=== PATIENT | female | born 1980 | race Two or more races ===

== ENCOUNTER → 2017-02-04 00:08 | Emergency (ER) | payer BC, MEDICAID ==
[~2017-02-04 00:08] MED LIST: Acetaminophen TAB* 325 MG PO ONE; Insulin REGULAR(*) 1 UNITS UNIT SUBCUT ONE; Sulfamethox/Trimethoprim DS 800/160* TAB PO ONE
[2017-02-04 00:46] LABS: Hematocrit 42 % (35-47); Hemoglobin 14.2 g/dl (12.0-16.0); Mean Corpuscular HGB Conc 34 g/dl (31-36); Mean Corpuscular Hemoglobin 28 pg (27-31); Mean Corpuscular Volume 84 fL (80-97); Mean Platelet Volume 8 um3 (7.4-10.4); Red Blood Count 4.99 10^6/ul (4.0-5.4); Red Cell Distribution Width 13 % (10.5-15); White Blood Count 10.2 10^3/ul (3.5-10.8)
[2017-02-04 00:54] LABS: Urine Bacteria Absent (Absent); Urine Bilirubin Negative (Negative); Urine Glucose 3+(>=500 mg/dL) (Negative); Urine Nitrite Negative (Negative)
[2017-02-04 01:01] LABS: ALT 15 U/L (7-52); AST 12 U/L (13-39); Alkaline Phosphatase 74 U/L (34-104); Anion Gap 6 mmol/L (2-11); BUN/Creatinine Ratio 17.7 (8-20); Blood Urea Nitrogen 11 mg/dL (6-24); CO2 Carbon Dioxide 28 mmol/L (22-32); Calcium 9.5 mg/dL (8.6-10.3); Chloride 96 mmol/L (101-111); EGFR African American 141.7 (>60); EGFR Non-African American 110.2 (>60); Globulin 2.6 g/dL (2-4); Glucose 380 mg/dL (70-100); Lipase 23 U/L (11.0-82.0); Potassium 3.7 mmol/L (3.5-5.0); Sodium 130 mmol/L (133-145); Total Protein 6.6 g/dL (6.4-8.9)
--- NOTE | 2017-02-04 01:33 | ED ---
GI/ HPI - HPI Summary HPI Summary: 36F presents with burning urination, nausea and bilateral flank pain for a week. She states her sugars have been high. She denies any vomiting, diarrhea , constipation. She has pelvic pain. She denies any vaginal discharge. She denies any history of STDs. She has generalized headache that feels like a band around her head. She denies any fever. She admits to frequency and urgency. She denies any injury to the area. She denies any history of kidney stones or blood in her urine. She is a diabetic. - History of Current Complaint Chief Complaint: EDFlankPain Time Seen by Provider: 02/04/17 00:26 Stated Complaint: LOWER BACK PAIN Pain Intensity: 8 - Allergy/Home Medications Allergies/Adverse Reactions: Allergies Allergy/AdvReac Type Severity Reaction Status Date / Time No Known Allergies Allergy Verified 06/17/14 13:33 PMH/Surg Hx/FS Hx/Imm Hx Endocrine/Hematology History: Reports: Hx Diabetes Cardiovascular History: Denies: Hx Congestive Heart Failure, Hx Hypertension History: Denies: Hx Dialysis, Hx Renal Disease - Surgical History Surgery Procedure, Year, and Place: 2 c-sections/ carpal tunnel/colon polyps removed Infectious Disease History: No Infectious Disease History: Denies: Traveled Outside the US in Last 30 Days - Family History Known Family History: Positive: Diabetes - Social History Alcohol Use: None Substance Use Type: Reports: None Smoking Status (MU): Never Smoked Tobacco Review of Systems Negative: Fever Negative: Chest Pain Negative: Shortness Of Breath Positive: Nausea Positive: dysuria, frequency, flank pain All Other Systems Reviewed And Are Negative: Yes Physical Exam Triage Information Reviewed: Yes Vital Signs On Initial Exam: Initial Vitals Temp Pulse Resp BP Pulse Ox 96.9 F 96 16 107/69 99 02/04/17 00:09 02/04/17 00:09 02/04/17 00:09 02/04/17 00:02/04/17 00:09 Vital Signs Reviewed: Yes Appearance: Positive: Well-Appearing Skin: Positive: Warm, Dry Head/Face: Positive: Normal Head/Face Inspection Eyes: Positive: Normal, EOMI, LILLIE, Conjunctiva Clear ENT: Positive: Normal ENT inspection, Pharynx normal, TMs normal Respiratory/Lung Sounds: Positive: Clear to Auscultation, Breath Sounds Present Cardiovascular: Positive: Normal, RRR Abdomen Description: Positive: Soft, Other: - mild tenderness in suprapubic region. Negative: CVA Tenderness (R), CVA Tenderness (L) Bowel Sounds: Positive: Present - [place] Coma Scale Coma Scale Total: 15 Diagnostics - Vital Signs Vital Signs Temp Pulse Resp BP Pulse Ox 02/04/17 00:09 96.9 F 96 16 107/69 99 - Laboratory Lab Results: Lab Results 02/04/17 02/04/17 02/04/17 Range/Units 00:34 00:34 00:34 WBC 10.2 (3.5-10.8) 10^3/ul RBC 4.99 (4.0-5.4) 10^6/ul Hgb 14.2 (12.0-16.0) g/dl Hct 42 (35-47) % MCV 84 (80-97) fL MCH 28 (27-31) pg MCHC 34 (31-36) g/dl RDW 13 (10.5-15) % Plt Count 305 (150-450) 10^3/ul MPV 8 (7.4-10.4) um3 Neut % (Auto) 57.7 (38-83) % Lymph % (Auto) 33.8 (25-47) % [place] % (Auto) 5.6 (1-9) % Eos % (Auto) 1.8 (0-6) % Baso % (Auto) 1.1 (0-2) % Absolute Neuts (auto) 5.9 (1.5-7.7) 10^3/ul Absolute Lymphs (auto) 3.4 (1.0-4.8) 10^3/ul Absolute Monos (auto) 0.6 (0-0.8) 10^3/ul Absolute Eos (auto) 0.2 (0-0.6) 10^3/ul Absolute Basos (auto) 0.1 (0-0.2) 10^3/ul Absolute Nucleated RBC 0.01 10^3/ul Nucleated RBC % 0.1 Sodium 130 L (133-145) mmol/L Potassium 3.7 (3.5-5.0) mmol/L Chloride 96 L (101-111) mmol/L Carbon Dioxide 28 (22-32) mmol/L Anion Gap 6 (2-11) mmol/L BUN 11 (6-24) mg/dL Creatinine 0.62 (0.51-0.95) mg/dL Est GFR ( Amer) 141.7 (>60) Est GFR (Non-Af Amer) 110.2 (>60) BUN/Creatinine Ratio 17.7 (8-20) Glucose 380 H (70-100) mg/dL Calcium 9.5 (8.6-10.3) mg/dL Total Bilirubin 0.40 (0.2-1.0) mg/dL AST 12 L (13-39) U/L ALT 15 (7-52) U/L Alkaline Phosphatase 74 (34-104) U/L Total Protein 6.6 (6.4-8.9) g/dL Albumin 4.0 (3.2-5.2) g/dL Globulin 2.6 (2-4) g/dL Albumin/Globulin Ratio 1.5 (1-3) Lipase 23 (11.0-82.0) U/L Beta HCG, Quant < 0.60 mIU/mL Urine Color Yellow Urine Appearance Cloudy Urine pH 5.0 (5-9) Ur Specific [place] 1.035 H (1.010-1.030) Urine Protein Negative (Negative) Urine Ketones Negative (Negative) Urine Blood Negative (Negative) Urine Nitrate Negative (Negative) Urine Bilirubin Negative (Negative) Urine Urobilinogen Negative (Negative) Ur Leukocyte Esterase Trace H (Negative) Urine WBC (Auto) Trace(0-5/hpf) (Absent) Urine RBC (Auto) Trace(0-2/hpf) (Absent) Ur Squamous Epith Cells Present H (Absent) Urine Bacteria Absent (Absent) Urine Glucose 3+(>=500 mg/dl) H (Negative) Result Diagrams: 02/04/17 00:34 02/04/17 00:34 Lab Statement: Any lab studies that have been ordered have been reviewed, and results considered in the medical decision making process. GIGU Course/Dx - Course Course Of Treatment: 36F presents with burning urination, nausea and bilateral flank pain for a week. She states her sugars have been high. She denies any vomiting, diarrhea, constipation. She has pelvic pain. She denies any vaginal discharge. She denies any history of STDs. She has generalized headache that feels like a band around her head. She denies any fever. She admits to frequency and urgency. She denies any injury to the area. She denies any history of kidney stones or blood in her urine. on exam minimial pain in suprapubic area. neg CVA tenderness. labs normal wbc. glucose 380 so gave insulin. patient did not take lantus yet. no ketones in urine. urine leuk and wbc so will treat for UTI and with sx with treat for pyelo. do not suspect kidney stone as no blood in urine. - Diagnoses Differential Diagnoses - Female: Pyelonephritis, Urinary Tract Infection, Ureteral Calculi Provider Diagnoses: Pyelonephritis Discharge - Discharge Plan Condition: Stable Disposition: HOME Prescriptions: Ondansetron ODT TAB* [Zofran 4 MG Odt TAB*] 4 mg PO Q6H PRN #15 tab.odt PRN Reason: Nausea Sulfamethox/Trimethoprim DS* [Bactrim DS 800/160 TAB*] 1 tab PO BID #27 tab Patient Education Materials: Kidney Infection (ED) Referrals: Fe Bowser MD [Primary Care Provider] - Additional Instructions: Take antibiotic twice a day for 14 days, starting tomorrow Drink plenty of water Take zofran every 6 hours for nausea Take Tylenol or ibuprofen every 6 hours as needed for pain and fever Follow up with primary within a week Return to ED if develop severe vomiting, or any new or worsening symptoms
[2017-02-04 01:56] VITALS: BP 115/69
== END | disposition home or self-care (01) ==
LOC: ED 00:08
DX: N12 Tubulo-interstitial nephritis, not specified as acute or chronic (principal); M54.5 Low back pain; R11.0 Nausea; R30.0 Dysuria
CPT/HCPCS: 36415; 80053; 81003; 81015; 83690; 84702; 85025; 87086; 99282; A9270-GY

== ENCOUNTER 2017-09-01 22:38 | Emergency (ER) | payer BC, MEDICAID ==
[2017-09-01] MEDS ORDERED: NS 0.9% 1000 ML* 1,000 ML IV ONE (23:12)
[2017-09-01 23:39] LABS: ABS Basophils 0.1 10^3/ul (0-0.2); ABS Eosinophils 0.2 10^3/ul (0-0.6); ABS Lymphocytes 3.7 10^3/ul (1.0-4.8); ABS Monocytes 0.5 10^3/ul (0-0.8); ABS Neutrophils 5.5 10^3/ul (1.5-7.7); ABS Nucleated RBC 0 10^3/ul; Eosinophil % 1.6 % (0-6); Hematocrit 40 % (35-47); Hemoglobin 13.5 g/dl (12.0-16.0); Lymphocyte % 36.9 % (25-47); Mean Corpuscular HGB Conc 34 g/dl (31-36); Mean Corpuscular Hemoglobin 28 pg (27-31); Mean Corpuscular Volume 82 fL (80-97); Mean Platelet Volume 8.3 um3 (7.4-10.4); Nucleated Red Blood Cells % 0.1; Platelet Count 284 10^3/ul (150-450); Red Blood Count 4.85 10^6/ul (4.0-5.4); Red Cell Distribution Width 14 % (10.5-15); White Blood Count 9.9 10^3/ul (3.5-10.8)
[2017-09-01 23:50] LABS: INR 0.9 (0.77-1.02)
[2017-09-02] LABS: EGFR Non-African American 126.5 (>60)
[2017-09-02] MEDS ORDERED: Insulin REGULAR(*) 1 UNITS UNIT IV PUSH ONE (00:36)
--- NOTE | 2017-09-02 02:41 | ED ---
Nakita Fam Julia, scribed for Goldie Toth MD on 09/01/17 at 2319 . GI/ HPI - HPI Summary HPI Summary: This patient is a 36 year old F presenting to [facility] accompanied by_ with a chief complaint of constant vaginal bleeding since 08/17/17 worsening today with lower abdominal pain. Patient reports dizziness and vomiting. The patient rates the pain 6/10 in severity. Patient states her period is usually very regular every four weeks lasting 3-4 days of heavy bleeding with 2 days of light bleeding. She has had an IUD (copper) for the past 7 years. She states she has not seen an OB in years. - History of Current Complaint Chief Complaint: EDVaginalBleeding Time Seen by Provider: 09/01/17 22:49 Stated Complaint: VAGINAL BLEEDING, FATIGUE Onset/Duration: Started Weeks Ago, Still Present Timing: Constant Pain Intensity: 6 Location of Pain: Suprapubic Associated Signs and Symptoms: Positive: Dizziness, Vomiting, Abdominal Pain - Allergy/Home Medications Allergies/Adverse Reactions: Allergies Allergy/AdvReac Type Severity Reaction Status Date / Time No Known Allergies Allergy Verified 06/17/14 13:33 PMH/Surg Hx/FS Hx/Imm Hx Endocrine/Hematology History: Reports: Hx Diabetes Cardiovascular History: Reports: Hx Hypercholesterolemia, Hx Hypertension Denies: Hx Congestive Heart Failure History: Denies: Hx Dialysis, Hx Renal Disease Psychiatric History: Reports: Hx Depression - Surgical History Surgery Procedure, Year, and Place: 2 c-sections/ carpal tunnel/colon polyps removed Infectious Disease History: No Infectious Disease History: Denies: Traveled Outside the [place] in Last 30 Days - Family History Known Family History: Positive: Diabetes - Social History Alcohol Use: None Substance Use Type: Reports: None Smoking Status (MU): Never Smoked Tobacco Review of Systems Positive: Abdominal Pain, Vomiting Positive: other - vaginal bleeding Neurological: Other - dizziness All Other Systems Reviewed And Are Negative: Yes Physical Exam - Summary Physical Exam Summary: VITAL SIGNS: Reviewed. GENERAL: Patient is a well-developed and nourished female who is lying comfortable in the stretcher. Patient is not in any acute respiratory distress. HEAD AND FACE: No signs of trauma. No ecchymosis, hematomas or skull depressions. No sinus tenderness. EYES: PERRLA, EOMI x 2, No injected conjunctiva, no nystagmus. EARS: Hearing grossly intact. Ear canals and tympanic membranes are within normal limits. MOUTH: Oropharynx within normal limits. NECK: Supple, trachea is midline, no adenopathy, no JVD, no carotid bruit, no c- spine tenderness, neck with full ROM. CHEST: Symmetric, no tenderness at palpation LUNGS: Clear to auscultation bilaterally. No wheezing or crackles. CVS: Regular rate and rhythm, S1 and S2 present, no murmurs or gallops appreciated. ABDOMEN: Soft, non-tender. No signs of distention. No rebound no guarding, and no masses palpated. Bowel sounds are normal. EXTREMITIES: FROM in all major joints, no edema, no cyanosis or clubbing. NEURO: Alert and oriented x 3. No acute neurological deficits. Speech is normal and follows commands. SKIN: Dry and warm Triage Information Reviewed: Yes Vital Signs On Initial Exam: Initial Vitals Temp Pulse Resp BP Pulse Ox 97 F 83 20 118/78 98 09/01/17 22:40 09/01/17 22:40 09/01/17 22:40 09/01/17 22:40 09/01/17 22:40 Vital Signs Reviewed: Yes Diagnostics - Vital Signs Vital Signs Temp Pulse Resp BP Pulse Ox 09/01/17 22:40 97 F 83 20 118/78 98 - Laboratory Result Diagrams: 09/01/17 23:30 09/01/17 23:30 Lab Statement: Any lab studies that have been ordered have been reviewed, and results considered in the medical decision making process. - Additional Comments Diagnostic Additional Comments: A Pelvic US reveals: Uterus is normal and an IUD is noted within the endometrial cavity. Normal left ovary with positive Doppler blood flow. Normal right ovary with positive Doppler blood flow. No free fluid. No acute abnormalities are identified. ED Physician has reviewed this report. Re-Evaluation - Re-Evaluation 1 Re-Evaluation Time: 02:20 Comment: Pt informed of results. Pt will be discharged. GIGU Course/Dx - Course Course Of Treatment: Pt presents with onstant vaginal bleeding since 08/17/17 worsening today with lower abdominal pain. A Pelvis US is unremarkable. Lab results reveal blood glucose of 190, but are otherwise WNL. Pt is given insulin and IV fluids. Pt is instructed to follow up with OB and is discharged. - Diagnoses Provider Diagnoses: Vaginal bleeding, Hyperglycemia Discharge - Sign-Out/Discharge Documenting (check all that apply): Discharge - Discharge Plan Condition: Stable Disposition: HOME Patient Education Materials: Dysfunctional Uterine Bleeding (ED), Diabetic Hyperglycemia (ED) Referrals: Marilee Robertson MD [Medical Doctor] - As Soon As Possible (Follow up with your OB physician, or this OB physician.) The documentation as recorded by the Nakita ludwig Julia accurately reflects the service I personally performed and the decisions made by me, Goldie Toth MD.
[2017-09-02 03:25] VITALS: BP 114/71
--- NOTE | 2017-09-02 07:42 | RAD ---
HISTORY: Vaginal bleeding COMPARISONS: March 11, 2013 TECHNIQUE: Multiple transverse and longitudinal ultrasound images were obtained of the pelvis using grayscale, color Doppler, and spectral Doppler imaging using the transabdominal transducer. FINDINGS: UTERUS: The uterus measures 9.7 x 4.7 x 5.8 cm. The uterus is normal in shape, size, contour, and echotexture. ENDOMETRIUM: An IUD is noted centrally within the endometrial cavity towards the fundus. The endometrium is not well-visualized given the presence of the IUD in technique. CUL-DE-SAC: There is no free fluid within the cul-de-sac. RIGHT OVARY: The right ovary measures 4.1 x 1.6 x 3 cm. Normal arterial and venous waveforms are identifiable within the ovary on spectral Doppler imaging. LEFT OVARY: The left ovary measures 3.5 x 2.1 x 3.1 cm. Normal arterial and venous waveforms are identifiable within the ovary on spectral Doppler imaging. There is a 1.6 cm simple cyst of the left ovary. BLADDER: The visualized bladder is unremarkable. OTHER: None IMPRESSION: 1. IUD. 2. 1.6 CM SIMPLE CYST OF THE LEFT OVARY. 3. NO SONOGRAPHIC FEATURES OF TORSION. PLEASE NOTE THAT PARTIAL OR INTERMITTENT TORSION MAY BE SONOGRAPHICALLY NORMAL.
== END 2017-09-02 03:23 | disposition home or self-care (01) ==
LOC: ED 22:38
DX: N93.9 Abnormal uterine and vaginal bleeding, unspecified (principal); E11.65 Type 2 diabetes mellitus with hyperglycemia; Z79.4 Long term (current) use of insulin; N83.292 Other ovarian cyst, left side; Z32.02 Encounter for pregnancy test, result negative; Z97.5 Presence of (intrauterine) contraceptive device; R42 Dizziness and giddiness; R11.10 Vomiting, unspecified; R10.30 Lower abdominal pain, unspecified; E78.00 Pure hypercholesterolemia, unspecified; I10 Essential (primary) hypertension; F32.9 Major depressive disorder, single episode, unspecified
CPT/HCPCS: 36415; 76856; 80053; 84702; 85025; 85610; 85730; 86850; 86900; 86901; 96374; 99284

== ENCOUNTER 2019-04-16 19:36 | Emergency (ER) | payer BC, MEDICAID ==
--- OUTSIDE RECORDS SUMMARY | 2019-04-16 19:56 | XMS REPORT | Continuity of Care Document ---
:1980 External Reference #:[id number] Author Name Nilson Phan MD (transmitted by agent of provider Charmaine Raymond) Address [address] [place] [id number] Care Team Providers Name Role Phone Maxim Pollock MD - Internal Care Team Information [employer]inner [phone] Medicine Fe Bowser MD - Internal Care Team Information [employer] Medicine Problems Active Problems Provider Date Type II diabetes mellitus uncontrolled Fe Bowser M.D. Onset: 04/15/2012 Obesity Fe Bowser M.D. Onset: 04/15/2012 Depressive disorder Fe Bowser M.D. Onset: 01/20/2013 Adenomatous polyp of colon Fe Bowser M.D. Onset: 06/23/2014 Note: tubular ( no high grade dysplasia ) Alopecia Fe Bowser M.D. Onset: 06/27/2014 Hyperlipidemia Fe Bowser M.D. Onset: 06/27/2014 Internal hemorrhoids Fe Bowser M.D. Onset: 06/27/2014 Helicobacter pylori gastrointestinal tract Onset: infection Note: clotest + treated Erosive esophagitis Onset: Note: H pylori + , treated by Pradip Saini Social History Type Date Description Comments Sex Unknown ETOH Use Denies alcohol use Tobacco Use Start: Unknown Patient has never smoked Recreational Drug Use Denies Drug Use Smoking Status Reviewed: 04/01/19 Patient has never smoked Exercise Type/Frequency Exercises regularly walking and gym Allergies, Adverse Reactions, Alerts Description No Known Drug Allergies Medications Active Medications SIG Qnty Indications Ordering Date Provider Ozempic (1 MG/Dose) 1mg injection 3ml E11.65 Nilson Phan MD 04/01/2019 once weekly, hold 2mg/1.5ML Solution on file for Pen-Inject second month Humalog Mix 75/25 20 units with 30ml E11.65 Nilson Phan MD 08/14/2018 Kwikpen last meal of day , 20 units with (75-25)100Unit/ML first meal of the n day BD Insulin Syringe 8mm - use daily 30units E11.65 Fe Bowser, 2014 Ultrafine/1ML/31G X or as needed M.D. 5/16" 31G X 5/16" 1 ML Misc BD Pen use as directed 200units Nilson Phan MD 05/11/2015 Needle/Mini/Ultrafin with Ozempic and e/31G X 3/16" Humalog 31G X 5 mm [facility] Accu-Chek Fastclix 3 - 4 times daily 300units E11.65 Mohamud Lawrence 04/25/2015 Lancets or as needed [place] [facility] DX:E11.65 Lisinopril 1 by mouth every 90tabs Fe Bowser, 08/24/2014 2.5mg day M.D. Tablets Accu-Check Orin 3-4 times a day 300units E11.65 Mohamud Lawrence 07/23/2013 Chem Strips and as needed dx [place] [facility] e11.65 Relion Pen [place] use daily with 3Box Fe Bowser, 06/11/2013 [id number] victoza pt is M.D. 31G X 8 mm leaving out of [facility] country Accu-Check Glucose check 2-3 times a 1units E11.65 Fe Bowser, 2011 Monitor day M.DLuna Device Immunizations CPT Code Status Date Vaccine Lot # [id number] Given 03/28/2015 Influenza Virus Vaccine, Quadrivalent, Split, [id number] Preservative Free [id number] Given 10/06/2014 Pneumococcal Conjugate Vaccine 13 Valent For [id number] Intramuscular Use [id number] Given 04/06/2014 Flu Vaccine Split Virus Preservative Free For [id number] Indiv 3Yr Older 13864 Given 08/18/2013 Hepatitis B Vaccine Adult Dosage [id number] Given 03/02/2013 Flu Vaccine Split Virus Preservative Free For [id number] Indiv 3Yr Older 10065 Given 08/25/2012 Pneumonia Vaccine [id number] Given 08/25/2012 Tdap - Tetanus/Diptheria/Acellular Pertussis [id number] Given 04/14/2012 Fluvirin Im 3Yrs And Older [id number] Refused 03/20/2017 Influenza Virus Vaccine, Quadrivalent, Split, Preservative Free [id number] Refused 07/31/2016 Influ Virus Vaccine, Quadrivalent, Split Virus, Im Fluzone not PF Vital Signs Date Vital Result Comment 04/01/2019 9:50am Height 63 inches 5'3" Weight 201.00 lb Heart Rate 90 /min BP Systolic Sitting 117 mmHg BP Diastolic Sitting 83 mmHg BMI (Body Mass Index) 35.6 kg/m2 09/25/2018 11:05am Height 63 inches 5'3" Weight 209.00 lb w/ shoes Heart Rate 94 /min BP Systolic Sitting 132 mmHg BP Diastolic Sitting 88 mmHg BMI (Body Mass Index) 37.0 kg/m2 Results Description No Information Available Procedures Date Code Description Status 11/25/2017 213044695 Diabetic Retinal Eye Exam Completed 09/02/2015 [id number] Diabetic Retinal Eye Exam Completed 09/08/2014 055259348 Diabetic Retinal Eye Exam Completed 06/21/2014 84236948 Colonoscopy Completed 06/03/2013 67753757 Colonoscopy Completed 06/03/2012 856094089 Diabetic Retinal Eye Exam Completed Medical Devices Description No Information Available Encounters Description No Information Available Assessments Date Code Description Provider 04/01/2019 E11.65 Type 2 diabetes mellitus with hyperglycemia Nilson Phan MD 04/01/2019 Z79.4 custodial (current) use of insulin Nilson Phan MD Plan of Treatment Future Appointment(s):07/08/2019 9:20 am - Nilson Phan MD at [facility]04/01/2019 - Nilson Phan MDE11.65 Type 2 diabetes mellitus with hyperglycemiaNew Medication:Ozempic (1 MG/Dose) 2 mg/1.5ML - 1mg injection once weekly, hold on file for second monthFollow up:3 monthsInstructions:1. Increase Ozempic to 1mg every week. 2. Reduce insulin to 20 units with largest meal of the day and if your morning blood glucose is more than 160. 3. Reduce or eliminate carbohydrate in the foods you eat. 4. Blood tests today. 5. 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
[2019-04-16] MEDS ORDERED: Ketorolac INJ* 30 MG/ML 1 ML VIAL IV PUSH ONE (21:05)
[2019-04-16] MEDS ORDERED: Ondansetron INJ* 2 MG/ML VIAL IV ONE (21:05)
[2019-04-16 21:27] LABS: ABS Basophils 0.1 10^3/ul (0-0.2); ABS Eosinophils 0.1 10^3/ul (0-0.6); ABS Lymphocytes 2.2 10^3/ul (1.0-4.8); ABS Monocytes 0.4 10^3/ul (0-0.8); ABS Neutrophils 6.5 10^3/ul (1.5-7.7); Eosinophil % 1.1 %; Hematocrit 39 % (35-47); Hemoglobin 13.5 g/dL (12.0-16.0); Lymphocyte % 23.9 %; Mean Corpuscular HGB Conc 34 g/dL (31-36); Mean Corpuscular Hemoglobin 29 pg (27-31); Mean Corpuscular Volume 84 fL (80-97); Mean Platelet Volume 8.3 fL (7.4-10.4); Nucleated Red Blood Cells % 0.1; Platelet Count 282 10^3/uL (150-450); Red Blood Count 4.67 10^6 /uL (3.70-4.87); Red Cell Distribution Width 13 % (10-15); White Blood Count 9.3 10^3/uL (3.5-10.8)
--- NOTE | 2019-04-16 21:28 | ED ---
GI/ HPI - HPI Summary HPI Summary: 38-year-old female presents with abdominal pain today. She admits to nausea vomiting. Denies any diarrhea. She admits to dysuria. No hematuria. Never had this pain before. She has history . No other abdominal surgeries. Is diabetic and takes insulin. She denies any shortness of breath and chest pain. Denies any history of diverticulitis or colitis. no fevers. has had a decrease in appetite. no one else is sick. did not eat anything different. - History of Current Complaint Chief Complaint: EDAbdPain Time Seen by Provider: 04/16/19 20:58 Stated Complaint: ABDOMINAL PAIN,THROWING UP PER PT Pain Intensity: 10 - Allergy/Home Medications Allergies/Adverse Reactions: Allergies Allergy/AdvReac Type Severity Reaction Status Date / Time No Known Allergies Allergy Verified 03/26/18 06:02 PMH/Surg Hx/FS Hx/Imm Hx Endocrine/Hematology History: Reports: Hx Diabetes Cardiovascular History: Reports: Hx Hypercholesterolemia, Hx Hypertension Denies: Hx Congestive Heart Failure History: Denies: Hx Dialysis, Hx Kidney Infection, Hx Kidney Stones, Hx Renal Disease Psychiatric History: Reports: Hx Depression - Surgical History Surgery Procedure, Year, and Place: 2 c-sections/ carpal tunnel/colon polyps removed Infectious Disease History: No Infectious Disease History: Denies: Traveled Outside the [place] in Last 30 Days - Family History Known Family History: Positive: Diabetes - Social History Alcohol Use: None Hx Substance Use: No Substance Use Type: Reports: None Hx Tobacco Use: No Smoking Status (MU): Never Smoked Tobacco Review of Systems Negative: Fever Negative: Chest Pain Negative: Shortness Of Breath Positive: Abdominal Pain, Vomiting, Nausea. Negative: Diarrhea All Other Systems Reviewed And Are Negative: Yes Physical Exam Triage Information Reviewed: Yes Vital Signs On Initial Exam: Initial Vitals Temp Pulse Resp BP Pulse Ox 98.0 F 94 18 124/99 97 04/16/19 19:44 04/16/19 19:44 04/16/19 19:44 04/16/19 19:44 04/16/19 19:44 Vital Signs Reviewed: Yes Appearance: Positive: Well-Appearing Skin: Positive: Warm, Dry Head/Face: Positive: Normal Head/Face Inspection Eyes: Positive: Normal, Conjunctiva Clear ENT: Positive: Pharynx normal Respiratory/Lung Sounds: Positive: Clear to Auscultation, Breath Sounds Present Cardiovascular: Positive: Normal, RRR Abdomen Description: Positive: Soft, Other: - tenderness in lower abd Bowel Sounds: Positive: Present Musculoskeletal: Positive: Normal Neurological: Positive: Normal Psychiatric: Positive: Normal Procedures - Sedation Patient Received Moderate/Deep Sedation with Procedure: No Diagnostics - Vital Signs Vital Signs Temp Pulse Resp BP Pulse Ox 04/16/19 19:44 98.0 F 94 18 124/99 97 - Laboratory Lab Results: Lab Results 04/16/19 Range/Units 21:06 POC Glucose (mg/dL) 214 H (70-100) mg/dL Result Diagrams: 04/16/19 21:15 04/16/19 21:15 Lab Statement: Any lab studies that have been ordered have been reviewed, and results considered in the medical decision making process. - CT abd CT Interpretation Completed By: Radiologist Summary of CT Findings: IMPRESSION: 1. Small volume of mildly hyperdense free fluid within the pelvis. Hyperdensity may be on the basis of hemorrhagic or proteinaceous content. Question ruptured hemorrhagic cyst. 2. No acute inflammatory process. - Ultrasound No standard instances Ultrasound Interpretation Completed By: Radiologist Summary of Ultrasound Findings: IMPRESSION: 1. No evidence of torsion. 2. 3.6 cm left ovarian cyst. 3. Small volume of free fluid. GIGU Course/Dx - Course Course Of Treatment: 38-year-old female presents with abdominal pain today. She admits to nausea vomiting. Denies any diarrhea. She admits to dysuria. No hematuria. Never had this pain before. She has history . No other abdominal surgeries. Is diabetic and takes insulin. She denies any shortness of breath and chest pain. Denies any history of diverticulitis or colitis. On exam has tenderness lower abdomen. White blood count normal. CRP normal. Gave fluids Toradol and Zofran and feeling better. Ultrasound shows left ovarian cysts. CT shows no acute process. told to follow up with spanish moss picker. patient understand and agrees with plan. - Diagnoses Differential Diagnoses - Female: Ovarian Cyst, Ovarian Torsion, Urinary Tract Infection Provider Diagnoses: Ovarian cyst, Abdominal pain Discharge ED - Sign-Out/Discharge Documenting (check all that apply): Patient Departure - Discharge Plan Condition: Good Disposition: HOME Patient Education Materials: Ovarian Cyst (ED) Referrals: Elio,Zsofia, STEWARD DISHWASHER [Primary Care Provider] - Additional Instructions: Take ibuprofen every 6 hours for pain Apply heat Follow up with obgyn Return to ED if develop any new or worsening symptoms - Billing Disposition and Condition Condition: GOOD Disposition: Home
[2019-04-16 21:42] LABS: ALT 12 U/L (7-52); AST 12 U/L (13-39); Albumin 4.1 g/dL (3.2-5.2); Albumin/Globulin Ratio 1.5 (1-3); Alkaline Phosphatase 78 U/L (34-104); Anion Gap 6 mmol/L (2-11); BUN/Creatinine Ratio 16.1 (8-20); Blood Urea Nitrogen 9 mg/dL (6-24); C Reactive Protein 6.31 mg/L (<8.01); CO2 Carbon Dioxide 28 mmol/L (22-32); Calcium 9.2 mg/dL (8.6-10.3); Chloride 101 mmol/L (101-111); EGFR African American 148.2 (>60); EGFR Non-African American 122.5 (>60); Globulin 2.8 g/dL (2-4); Glucose 215 mg/dL (70-100); Potassium 3.7 mmol/L (3.5-5.0); Sodium 135 mmol/L (135-145); Total Protein 6.9 g/dL (6.4-8.9)
[2019-04-16] MEDS: NS 0.9% 1000 ML** 2,000 ML IV ONE (21:44)
[2019-04-16 21:48] LABS: HCG Pregnancy < 0.60 mIU/mL
[2019-04-16 22:03] LABS: Urine Appearance Clear; Urine Bilirubin Negative (Negative); Urine Blood Negative (Negative); Urine Color Yellow; Urine Glucose 3+(>=500 mg/dL) (Negative); Urine Ketones 1+ (Negative); Urine Nitrite Negative (Negative); Urine Protein Negative (Negative); Urine Specific Gravity 1.023 (1.010-1.030); Urine Urobilinogen Negative (Negative)
[2019-04-16] MEDS ORDERED: Iodixanol* (CONTRAST) 320 MG/ML 100 ML SDV IV ONE (22:59)
[2019-04-17 00:41] VITALS: BP 117/71
== END 2019-04-17 00:35 | disposition home or self-care (01) ==
LOC: ED 19:36
DX: N83.202 Unspecified ovarian cyst, left side (principal); R11.2 Nausea with vomiting, unspecified; R30.0 Dysuria; I10 Essential (primary) hypertension; E11.9 Type 2 diabetes mellitus without complications; Z79.4 Long term (current) use of insulin
CPT/HCPCS: 36415; 74177; 76830; 80053; 81003; 82150; 82803; 83605; 83690; 84702; 85025; 86140; 96361; 96374; 96375; 99282; J1885; J2405; Q9967

== ENCOUNTER 2019-06-29 01:04 | Emergency (ER) | payer BC, MEDICAID ==
--- OUTSIDE RECORDS SUMMARY | 2019-06-29 01:14 | XMS REPORT | Continuity of Care Document ---
:1980 External Reference #:[id number] Author Name VAN Saha (transmitted by agent of provider Jayne Carrero) Address [address] [place] [id number] Care Team Providers Name Role Phone Maxim Pollock MD - Internal Care Team Information Cover Stitch Machine Operator [phone] Medicine Fe Bowser MD - Internal Care Team Information Cover Stitch Machine Operator [phone] Medicine Problems Active Problems Provider Date Type [...] Use Denies Drug Use Smoking Status Reviewed: 06/17/19 Patient has never smoked Exercise Type/Frequency Exercises regularly walking and gym Allergies, Adverse Reactions, Alerts Description No Known Drug Allergies Medications Active Medications SIG Qnty Indications Ordering Date Provider BD Pen Needle Mini Use as Directed With 200units Nilson Phan MD 2019 31GX3/16"__5mm Ozempic And Humalog Ozempic (1 Inject 1 MG 3units E11. Nilson Phan MD 04/01/2019 MG/Dose) Subcutaneously (Under The Skin) One Time 2mg/1.5ML Solution Weekly Pen-Inject Humalog Mix 75/25 20 units with last 30ml E11.Ena Phan MD 2018 Kwikpen meal of day , 20 units with first meal (75-25)100Unit/ML of the day Supn BD Insulin Syringe 8mm - use daily or as 30units E11. Fe Bowser, Ultrafine/1ML/31G needed M.D. X 5/16" 31G X 5/16" 1 ML Misc BD Pen use as directed with 100units E11.65 Nilson Phan MD 05/11/2015 Needle/Mini/Ultraf ozempic, once weekly ine/31G X 3/16" and humalog twice daily 31[facility] X [address] [facility] Fast[facility] 3 - 4 times daily or 300units E11.65 Mohamud Lawrence 2014 Lancets as needed DX:E11.65 [place] Rojas [facility] [place] Lisinopril 1 by mouth every day 90tabs Fe Bowser, 08/24/2014 2.5mg M.D. Tablets Accu-Check Orin 3-4 times a day and 300units E11.65 Mohamud Lawrence 07/23/2013 Chem Strips as needed dx e11.65 Shaw[place] Rojas [facility] [place] Relion Pen Bang[place] use daily with 3Box Fe Bowser, 06/11/2013 [id number] victoza pt is leaving M.D. 31G X 8 out of country mm Misc Accu-Check Glucose check 2-3 times a day 1units E11.65 Fe Bowser, Monitor M.D. Device Immunizations CPT Code Status Date Vaccine Lot # [id number] Given 03/28/2015 Influenza Virus Vaccine, Quadrivalent, Split, [id number] Preservative Free [id number] Given 10/06/2014 Pneumococcal Conjugate Vaccine 13 Valent For [id number] Intramuscular Use 46301 Given 04/06/2014 Flu Vaccine Split Virus Preservative Free For [id number] Indiv 3Yr Older 03838 Given 08/18/2013 Hepatitis B Vaccine Adult Dosage [id number] 71289 Given 03/02/2013 Flu Vaccine Split Virus Preservative Free For [id number] Indiv 3Yr Older 02830 Given 08/25/2012 Pneumonia Vaccine [id number] 99226 Given 08/25/2012 Tdap - Tetanus/Diptheria/Acellular Pertussis [id number] Q2037 Given 04/14/2012 Fluvirin Im 3Yrs And Older [id number] [id number] Refused 03/20/2017 Influenza Virus Vaccine, Quadrivalent, Split, Preservative Free [id number] Refused 07/31/2016 Influ Virus Vaccine, Quadrivalent, Split Virus, Im Fluzone not PF Vital Signs Date Vital Result Comment 06/17/2019 9:26am Height 63 inches 5'3" Weight 191.00 lb Heart Rate 95 /min BP Systolic 111 mmHg BP Diastolic 79 mmHg Body Temperature 97.8 F O2 % BldC Oximetry 98 % BMI (Body Mass Index) 33.8 kg/m2 04/01/2019 9:50am Height 63 inches 5'3" Weight 201.00 lb Heart Rate 90 /min BP Systolic Sitting 117 mmHg BP Diastolic Sitting 83 mmHg BMI (Body Mass Index) 35.6 kg/m2 Results Test Acquired Date Facility Test Result H/L Range Note Venous Blood 04/16/2019 [facility] Venous Blood 7.38 Normal 7.32-7.[address] [place] [address] [phone] Venous Pco2 46 mmHg Normal 41-51 Venous Po2 41.0 mmHg Normal 35-45 Venous O2 Saturation 72.6 % Normal 70-80 Venous Blood Base Excess 1.5 mmol/L Normal 0.0-4.0 1 Venous Bicarbonate Hco3 25.4 mmol/L Normal 24-28 Laboratory test 04/16/2019 [facility] Amylase 37 U/L Normal 29 -[address] [place] [address] [phone] CBC Auto Diff 04/16/2019 [facility] White Blood 9.3 Normal 3.5 -10.[address] Count 10^3/[place] [address] [phone] Red Blood Count 4.67 10^6/uL Normal 3.70-4.87 Hemoglobin 13.5 g/dL Normal 12.0-16.0 Hematocrit 39 % Normal 35-47 Mean Corpuscular Volume 84 fL Normal 80-97 Mean Corpuscular Hemoglobin 29 pg Normal 27-31 Mean Corpuscular HGB Conc 34 g/dL Normal 31-36 Red Cell Distribution Width 13 % Normal 10-15 Platelet Count 282 10^3/uL Normal 150-450 Mean Platelet Volume 8.3 fL Normal 7.4-10.4 Abs Neutrophils 6.5 10^3/uL Normal 1.5-7.7 Abs Lymphocytes 2.2 10^3/uL Normal 1.0-4.8 Abs Monocytes 0.4 10^3/uL Normal 0-0.8 Abs Eosinophils 0.1 10^3/uL Normal 0-0.6 Abs Basophils 0.1 10^3/uL Normal 0-0.2 Abs Nucleated RBC 0.0 10^3/uL Granulocyte % 69.4 % Lymphocyte % 23.9 % Monocyte % 4.6 % Eosinophil % 1.1 % Basophil % 1.0 % Nucleated Red Blood Cells % 0.1 Laboratory test 04/16/2019 [facility] Lactic Acid 1.4 mmol/L Normal 0.5-2.0 2 finding [address] [place] [address] [phone] Comp Metabolic 04/16/2019 [facility] Sodium 135 mmol/L Normal 135-145 Panel [address] [place] [address] [phone] Potassium 3.7 mmol/L Normal 3.5-5.0 Chloride 101 mmol/L Normal 101-111 Co2 Carbon Dioxide 28 mmol/L Normal 22-32 Anion Gap 6 mmol/L Normal 2-11 Glucose 215 mg/dL High 70-100 Blood Urea Nitrogen 9 mg/dL Normal 6-24 Creatinine 0.56 mg/dL Normal 0.51-0.95 BUN/Creatinine Ratio 16.1 Normal 8-20 Calcium 9.2 mg/dL Normal 8.6-10.3 Total Protein 6.9 g/dL Normal 6.4-8.9 Albumin 4.1 g/dL Normal 3.2-5.2 Globulin 2.8 g/dL Normal 2-4 Albumin/Globulin Ratio 1.5 Normal 1-3 Total Bilirubin 0.40 mg/dL Normal 0.2-1.0 Alkaline Phosphatase 78 U/L Normal 34-104 Alt 12 U/L Normal 7-52 Ast 12 U/L Low 13-39 Egfr Non- 122.5 >60 Egfr 148.2 >60 3 Laboratory test 04/16/2019 [facility] Lipase 10 U/L Low 11.0- 82.[address] [place] [address] [phone] C Reactive Protein 6.31 mg/L Normal <8.01 HCG < 0.60 mIU/mL 4 Urinalysis Profile 04/16/2019 [facility] Urine Color Yellow [address] [place] [address] [phone] Urine Appearance Clear Urine Specific [place] 1.023 Normal 1.010-1.030 Urine pH 6.0 Normal 5-9 Urine Urobilinogen Negative Negative Urine Ketones 1+ Abnormal Negative Urine Protein Negative Negative Urine Leukocytes Negative Negative Urine Blood Negative Negative Urine Nitrite Negative Negative Urine Bilirubin Negative Negative Urine Glucose 3+(>=500 mg/dL) Abnormal Negative Laboratory test 04/16/2019 [facility] Point of Care 214 mg/dL High 70-[address] [place] [address] [phone] Laboratory test 04/01/2019 [facility] Hemoglobin A1c 9.0 % High 4.0-5.[address] (Glyco HGB) [place] [address] [phone] Comp Metabolic 04/01/2019 [facility] Sodium 136 Normal 135- [address] mmol/[place] [address] [phone] Potassium 4.3 mmol/L Normal 3.5-5.0 Chloride 101 mmol/L Normal 101-111 Co2 Carbon Dioxide 28 mmol/L Normal 22-32 Anion Gap 7 mmol/L Normal 2-11 Glucose 233 mg/dL High 70-100 Blood Urea Nitrogen 10 mg/dL Normal 6-24 Creatinine 0.58 mg/dL Normal 0.51-0.95 BUN/Creatinine Ratio 17.2 Normal 8-20 Calcium 9.5 mg/dL Normal 8.6-10.3 Total Protein 6.8 g/dL Normal 6.4-8.9 Albumin 4.1 g/dL Normal 3.2-5.2 Globulin 2.7 g/dL Normal 2-4 Albumin/Globulin Ratio 1.5 Normal 1-3 Total Bilirubin 0.50 mg/dL Normal 0.2-1.0 Alkaline Phosphatase 88 U/L Normal 34-104 Alt 13 U/L Normal 7-52 Ast 13 U/L Normal 13-39 Egfr Non- 117.6 >60 Egfr 142.3 >60 7 Laboratory 04/01/2019 [facility] TSH (Thyroid 1.16 Normal 0.34 -5.60 test finding [address] Stim Horm) mcIU/[place] [address] [phone] 1 Reference ranges based on room air. [address] [facility] Severe Sepsis and Septic Shock Management Bundle Measure requires all lactic acids initially measuring >2.0 mmol/L be repeated. 3 Because ethnic data is not always readily available, this report includes an eGFR for both -Americans and non- Americans. The National Kidney Disease Education Program (NKDEP) does not endorse the use of the MDRD equation for patients that are not between the ages of 18 and 70, are , have extremes of body size, muscle mass, or nutritional status, or are non- or non-. According to the National Kidney Foundation, irrespective of diagnosis, the stage of the disease is based on the level of kidney function: Stage Description GFR(mL/min/1.73 m(2)) 1 Kidney damage with normal or decreased GFR 90 2 Kidney damage with mild decrease in GFR 60-89 3 Moderate decrease in GFR 30-59 4 Severe decrease in GFR 15-29 5 Kidney failure <15 (or dialysis) 4 <5.0 Negative 5.0 - 25.0 Indeterminate (Repeat testing recommended after 72 hours) >25.0 Positive Perimenopausal women can display HCG levels of up to 20 mIU/mL 5 Scientific Diver: [id number] Therapeutic target for the treatment of diabetes mellitus patients is <7% HBA1C, and in selective patients <6.0%. Please refer to [place] [employer] diabetic care guidelines for further information. 7 Because ethnic data is not always readily available, this report includes an eGFR for both -Americans and non- Americans. The National Kidney Disease Education Program (NKDEP) does not endorse the use of the MDRD equation for patients that are not between the ages of 18 and 70, are , have extremes of body size, muscle mass, or nutritional status, or are non- or non-. According to the National Kidney Foundation, irrespective of diagnosis, the stage of the disease is based on the level of kidney function: Stage Description GFR(mL/min/1.73 m(2)) 1 Kidney damage with normal or decreased GFR 90 2 Kidney damage with mild decrease in GFR 60-89 3 Moderate decrease in GFR 30-59 4 Severe decrease in GFR 15-29 5 Kidney failure <15 (or dialysis) Procedures Date Code Description Status 11/25/2017 680504734 Diabetic Retinal Eye Exam Completed 09/02/2015 [id number] Diabetic Retinal Eye Exam Completed 09/08/2014 [id number] Diabetic Retinal Eye Exam Completed 06/21/2014 [id number] Colonoscopy Completed 06/03/2013 [id number] Colonoscopy Completed 06/03/2012 [id number] Diabetic Retinal Eye Exam Completed Medical Devices Description No Information Available Encounters Type Date Location Provider Dx Diagnosis Office Visit 04/01/2019 [facility] Nilson Phan MD E11.65 Type 2 diabetes 9:40a [facility] mellitus with hyperglycemia Z79.4 [facility] (current) use of insulin Assessments Date Code Description Provider 06/17/2019 M25.539 Pain in unspecified wrist VAN Saha 06/17/2019 M79.641 Pain in right hand VAN Saha 06/17/2019 M25.511 Pain in right shoulder VAN Saha 04/01/2019 E11.65 Type 2 diabetes mellitus with hyperglycemia Nilson Phan MD 04/01/2019 Z79.4 long term acute care registered nurse (current) use of insulin Nilson Phan MD Plan of Treatment Future Appointment(s):07/08/2019 10:00 am - VAN Saha at [facility] Internal Medicine - [facility]06/17/2019 - VIJAYA SahaPM25.539 Pain in unspecified wristComments:Please use the wrists brace as much as possible but at least during the nightAvoid any twisting motion and work against resistance.Follow up: 2 weeks for wrist pain and breast painM79.641 Pain in right handM25.511 Pain in right shoulderNew Therapy:Physical Therapy Functional Status Description No Information Available Mental Status Description No Information Available Referrals Description No Information Available
--- OUTSIDE RECORDS SUMMARY | 2019-06-29 01:14 | XMS REPORT | Continuity of Care Document ---
:1980 External Reference #:[id number] Author Name Gina Tijerina MD (transmitted by agent of provider Zandra Mckeon) Address [address] [facility] , [place] [address] Care Team Providers Name Role Phone Maxim Pollock MD - Internal Care Team Information Software Product Specialist [phone] Medicine Fe Bowser MD - Internal Care Team Information Software Product Specialist Medicine Problems Active Problems Provider Date Type [...] Use Denies Drug Use Smoking Status Reviewed: 06/26/19 Patient has never smoked Exercise Type/Frequency Exercises regularly walking and gym Allergies, Adverse Reactions, Alerts Description No Known Drug Allergies Medications Active Medications SIG Qnty Indications Ordering Date Provider Amoxicillin take 1 tab by mouth 20caps J02.9 Gina 06/26/2019 500mg twice daily for 10 MD Breezy Capsules days BD Pen Needle Mini Use as Directed With 200units Nilson Phan MD 2019 31GX3/16"__5mm Ozempic And Humalog Ozempic (1 Inject 1 MG 3units E11. Nilson Phan MD 04/01/2019 MG/Dose) Subcutaneously (Under The Skin) One Time 2mg/1.5ML Solution Weekly Pen-Inject Humalog Mix 75/25 20 units with last 30ml E11.65 Nilson Phan MD 2018 Kwikpen meal of day , 20 units with first meal (75-25)100Unit/ML of the day Supn BD Insulin Syringe 8mm - use daily or as 30units E11. Fe Bowser, Ultrafine/1ML/31G needed M.D. X 5/16" 31G X 5/16" 1 ML Misc BD Pen use as directed with 100units E11. Nilson Phan MD 05/11/2015 Needle/Mini/Ultraf ozempic, once weekly ine/31G X 3/16" and humalog twice daily 31G X 5 mm Misc Accu-Chek Fastclix 3 - 4 times daily or 300units E11.65 Mohamud Lawrence 2014 Lancets as needed DX:E11.65 Shawnee Rojas Misc Accu-Check Orin 3-4 times a day and 300units E11.Ena Lawrence 07/23/2013 Chem Strips as needed dx e11.65 Shawnee Rojas Misc Relion Pen [place] use daily with 3Box Fe Bowser, 06/11/2013 [id number] victoza pt is leaving M.D. 31G X 8 out of country mm Misc Accu-Check Glucose check 2-3 times a day 1units E11.65 Fe Bowser, Monitor M.DLuna Device Immunizations CPT Code Status Date Vaccine Lot # [id number] Given 03/28/2015 Influenza Virus Vaccine, Quadrivalent, Split, [id number] Preservative Free [id number] Given 10/06/2014 Pneumococcal Conjugate Vaccine 13 Valent For [id number] Intramuscular Use 22660 Given 04/06/2014 Flu Vaccine Split Virus Preservative Free For [id number] Indiv 3Yr Older 70134 Given 08/18/2013 Hepatitis B Vaccine Adult Dosage [id number] 43671 Given 03/02/2013 Flu Vaccine Split Virus Preservative Free For [id number] Indiv 3Yr Older 53995 Given 08/25/2012 Pneumonia Vaccine [id number] 62987 Given 08/25/2012 Tdap - Tetanus/Diptheria/Acellular Pertussis [id number] Q2037 Given 04/14/2012 Fluvirin Im 3Yrs And Older [id number] 46251 Refused 03/20/2017 Influenza Virus Vaccine, Quadrivalent, Split, Preservative Free 01519 Refused 07/31/2016 Influ Virus Vaccine, Quadrivalent, Split Virus, Im Fluzone not PF Vital Signs Date Vital Result Comment 06/26/2019 3:10pm Height 63 inches 5'3" Weight 194.25 lb Heart Rate 119 /min BP Systolic 130 mmHg BP Diastolic 88 mmHg Body Temperature 101.0 F O2 % BldC Oximetry 98 % BMI (Body Mass Index) 34.4 kg/m2 06/17/2019 9:26am Height 63 inches 5'3" Weight 191.00 lb Heart Rate 95 /min BP Systolic 111 mmHg BP Diastolic 79 mmHg Body Temperature 97.8 F O2 % BldC Oximetry 98 % BMI (Body Mass Index) 33.8 kg/m2 Results Test Acquired Date Facility Test Result H/L Range Note Laboratory test 06/17/2019 [facility] C Reactive 7.75 mg/L Normal <8.[address] [place] [address] [phone] Rheumatoid Factor < 10 IU/mL Normal <15 Cyclic Citrullinated Pep Igg <15.6 U 1 Venous Blood 04/16/2019 [facility] Venous Blood 7.38 Normal 7.32-7.[address] [place] [address] [phone] Venous Pco2 46 mmHg Normal 41-51 Venous Po2 41.0 mmHg Normal 35-45 Venous O2 Saturation 72.6 % Normal 70-80 Venous Blood Base Excess 1.5 mmol/L Normal 0.0-4.0 2 Venous Bicarbonate Hco3 25.4 mmol/L Normal 24-28 Laboratory test 04/16/2019 [facility] Amylase 37 U/L Normal 29 -103 finding [address] [place] [address] [phone] CBC Auto Diff 04/16/2019 [facility] White Blood 9.3 Normal 3.5 -10.[address] Count 10^3/[place] [address] [phone] Red Blood Count 4.67 10^6/uL Normal 3.70-4.87 [...] Blood Cells % 0.1 Laboratory test 04/16/2019 [facility] Lactic Acid 1.4 mmol/L Normal 0.5-2.0 3 finding [address] [place] [address] [phone] Comp Metabolic 04/16/2019 [facility] Sodium 135 mmol/L Normal 135-145 Panel [address] [place] [address] [phone] Potassium 3.7 mmol/L Normal 3.5-5.0 Chloride 101 [...] Egfr Non- 122.5 >60 Egfr 148.2 >60 4 Laboratory test 04/16/2019 [facility] Lipase 10 U/L Low 11.0- 82.[address] [place] [address] [phone] C Reactive Protein 6.31 mg/L Normal <8.01 HCG < 0.60 mIU/mL 5 Urinalysis Profile 04/16/2019 [facility] Urine Color Yellow [address] [place] [address] [phone] Urine Appearance Clear Urine Specific [place] 1.023 Normal 1.010-1.030 Urine pH 6.0 Normal 5-9 Urine Urobilinogen Negative Negative Urine Ketones 1+ Abnormal Negative Urine Protein Negative Negative Urine Leukocytes Negative Negative Urine Blood Negative Negative Urine Nitrite Negative Negative Urine Bilirubin Negative Negative Urine Glucose 3+(>=500 mg/dL) Abnormal Negative Laboratory test 04/16/2019 [facility] Point of Care 214 mg/dL High 70-[address] [place] [address] [phone] Laboratory test 04/01/2019 [facility] Hemoglobin A1c 9.0 % High 4.0-5.[address] (Glyco HGB) [place] [address] [phone] Comp Metabolic 04/01/2019 [facility] Sodium 136 Normal 135- [address] mmol/[place] [address] [phone] Potassium 4.3 mmol/L Normal 3.5-5.0 Chloride 101 [...] Egfr Non- 117.6 >60 Egfr 142.3 >60 8 Laboratory 04/01/2019 [facility] TSH (Thyroid 1.16 Normal 0.34 -5.60 test finding [address] Stim Horm) mcIU/[place] [address] [phone] 1 REFERENCE VALUE <20.0 (Negative) Test Performed by: [facility] [address] [place] [address] Scouts: Lázaro Blevins M.D. Ph.D.; CLIA# [id number] 2 Reference ranges based on room air. 3 [facility] Severe Sepsis and Septic Shock Management Bundle Measure requires all lactic acids initially measuring >2.0 mmol/L be repeated. 4 Because ethnic data is not always readily [...] 15-29 5 Kidney failure <15 (or dialysis) 5 <5.0 Negative 5.0 - 25.0 Indeterminate (Repeat testing recommended after 72 hours) >25.0 Positive Perimenopausal women can display HCG levels of up to 20 mIU/mL 6 Laboratory Machinist: [id number] 7 Therapeutic target for the treatment of diabetes mellitus patients is <7% HBA1C, and in selective patients <6.0%. Please refer to [place] Diabetes Association diabetic care guidelines for further information. 8 Because ethnic data is not always readily [...] dialysis) Procedures Date Code Description Status 11/25/2017 [id number] Diabetic Retinal Eye Exam Completed 09/02/2015 [id number] Diabetic Retinal Eye Exam Completed 09/08/2014 107868515 Diabetic Retinal Eye Exam Completed 06/21/2014 [id number] Colonoscopy Completed 06/03/2013 [id number] Colonoscopy Completed 06/03/2012 [id number] Diabetic Retinal Eye Exam Completed Medical Devices Description No Information Available Encounters Type Date Location Provider Dx Diagnosis Office Visit 06/17/2019 [facility] Korinaa Elio, M25.531 Pain in right 9:20a Medicine - [facility] REWINDER wrist M79.641 Pain in right hand M25.511 Pain in right shoulder M25.532 Pain in left wrist Office Visit 04/01/2019 [facility] and Nilson Phan, E11.65 Type 2 diabetes 9:40a Endocrinology of mellitus with [facility] Associate hyperglycemia Z79.4 [facility] (current) use of insulin Assessments Date Code Description Provider 06/26/2019 R05 Cough Gina Tijerina MD 06/26/2019 J02.9 Acute pharyngitis, unspecified Gina Tijerina MD 06/17/2019 M25.531 Pain in right wrist Zsofia Elio, REWINDER 06/17/2019 M79.641 Pain in right hand Zsofia Elio, REWINDER 06/17/2019 M25.511 Pain in right shoulder Zsofia Elio, REWINDER 06/17/2019 M25.532 Pain in left wrist Zsofia Elio, REWINDER 04/01/2019 E11.65 Type 2 diabetes mellitus with hyperglycemia Nilson Phan MD 04/01/2019 Z79.4 manager long term care (current) use of insulin Nilson Phan MD Plan of Treatment Future Appointment(s):07/01/2019 3:40 pm - [facility] Gina Tijerina MDR05 CoughNew Labs:Culture Throat , Ordered: 06/26/19New Xrays:Chest PA & Lat 2 VWS, Ordered: 06/26/19J02.9 Acute pharyngitis, unspecifiedNew Medication:Amoxicillin 500 mg - take 1 tab by mouth twice daily for 10 days Functional Status Description No Information Available Mental Status Description No Information Available Referrals Description No Information Available
[2019-06-29] MEDS ORDERED: Albuterol/Ipratropium NEB.SOL* Albuterol 2.5 MG/Ipratropium 0.5 MG 3 ML INH ONE (04:01)
--- NOTE | 2019-06-29 04:07 | ED ---
Respiratory - HPI Summary HPI Summary: The patient is a 38 y/o female presenting to [facility] with a chief complaint of respiratory symptoms onset over the last few days. She reports that she was not feeling well with a fever and sore throat on 06/24/2019, so she went to her PCP where she was diagnosed with Influenza B. She was placed on Amoxicillin, but her symptoms have continued to worsen. She is now c/o chest pain secondary to cough and SOB. She denies any fever now as it has resolved, and her vomiting has also subsided. Symptoms currently rated 6/10 in severity. Deep breathing aggravates the pain. PMHx: DM, HLD, HTN, , carpal tunnel surgery. FHx: . Nonsmoker, no EtOH, no substance use. Medications reviewed. Allergies noted. - History of Current Complaint Chief Complaint: EDUpperRespComplaint Stated Complaint: SOB PER PT Time Seen by Provider: 06/29/19 03:34 Hx Obtained From: Patient Onset/Duration: Gradual Onset, Lasting Days, Still Present Initial Severity: Moderate Current Severity: Moderate Pain Intensity: 6 Character: Cough (Nonproductive) Sputum Amount: None Aggravating Factor(s): Deep Breaths, Other - flu B Alleviating Factor(s): Nothing Associated Signs and Symptoms: SOB, Chest Pain with Cough - Allergy/Home Medications Allergies/Adverse Reactions: Allergies Allergy/AdvReac Type Severity Reaction Status Date / Time No Known Allergies Allergy Verified 06/29/19 01:08 PMH/Surg Hx/FS Hx/Imm Hx Endocrine/Hematology History: Reports: Hx Diabetes Cardiovascular History: Reports: Hx Hypercholesterolemia, Hx Hypertension Denies: Hx Congestive Heart Failure History: Denies: Hx Dialysis, Hx Kidney Infection, Hx Kidney Stones, Hx Renal Disease Psychiatric History: Reports: Hx Depression - Surgical History Surgical History: Yes Surgery Procedure, Year, and Place: 2 c-sections/ carpal tunnel/colon polyps removed Infectious Disease History: No Infectious Disease History: Denies: Traveled Outside the [place] in Last 30 Days - Family History Known Family History: Positive: Diabetes - Social History Alcohol Use: None Hx Substance Use: No Substance Use Type: Reports: None Hx Tobacco Use: No Smoking Status (MU): Never Smoked Tobacco - Additional Comments History Additional Comments: diabetes, HLD, HTN Review of Systems - ROS Summary Review of Systems Summary: Home Medications Medication Instructions Recorded Confirmed Type Atorvastatin Calcium 10 mg PO DAILY 06/17/14 03/26/18 History Insulin Glargine [Lantus Solostar] 80 units SUBCUT QAM 10/04/15 03/26/18 History Ciprofloxacin TAB* [Cipro 500 MG 500 mg PO BID #28 tab 03/26/18 Rx TAB*] Citalopram Hydrobromide 40 mg PO DAILY 03/26/18 03/26/18 History [Citalopram HBr] Insulin Lispro [Humalog] 7 unit SQ TID WITH MEALS 03/26/18 03/26/18 History Naproxen TAB* [Naprosyn 250 mg 500 mg PO Q12HR PRN #20 tab 03/26/18 Rx TAB*] Phenazopyridine 200 mg (NF) 200 mg PO TID PRN #6 tab 03/26/18 Rx [Pyridium 200 MG tab *] lisinopriL [Lisinopril 2.5 MG-] 2.5 mg PO DAILY 03/26/18 03/26/18 History Negative: Fever Positive: Chest Pain - secondary to cough Positive: Shortness Of Breath, Cough Negative: Vomiting, Nausea All Other Systems Reviewed And Are Negative: Yes Physical Exam - Summary Physical Exam Summary: General: Well-developed, Well-nourished female. No acute distress. HEENT: Normocephalic, Atraumatic. Eyes: Conjuctiva normal, PERRL. Oropharynx: Clear, mucous membranes moist, (-) exudates. Neck: Soft, FROM, (-) lymphadenopathy, (-) thyromegaly, (-) JVD. Cardiovascular: Normal sinus rhythm, (-) murmur. Lungs: Decreased mild air exchange, (+) wheezes, (-) rales, (-) rhonchi. Abdomen: Soft, non-tender, non-distended, (-) organomegaly, normal bowel sounds. Back: (-) CVA tenderness Extremities: No edema. Skin: Warm, dry, (-) rash. Neuro: Alert and oriented x3, moves all extremities equally. No ataxia. No gait disturbance. No sensory deficit. No amnesia. Psychiatric: Mood normal, affect normal. Triage Information Reviewed: Yes Vital Signs On Initial Exam: Initial Vitals Temp Pulse Resp BP Pulse Ox 98.8 F 106 16 134/99 100 06/29/19 01:06 06/29/19 01:06 06/29/19 01:06 06/29/19 01:06 06/29/19 01:06 Vital Signs Reviewed: Yes Procedures - Sedation Patient Received Moderate/Deep Sedation with Procedure: No Diagnostics - Vital Signs Vital Signs Temp Pulse Resp BP Pulse Ox 06/29/19 03:37 98 95 06/29/19 01:06 98.8 F 106 16 134/99 100 - Laboratory Result Diagrams: 06/29/19 04:28 06/29/19 04:28 Lab Statement: Any lab studies that have been ordered have been reviewed, and results considered in the medical decision making process. - Radiology CXR Radiology Interpretation Completed By: ED Physician Summary of Radiographic Findings: No infiltrate. No pleural effusion. ED physician has reviewed and interpreted this report. Pending official read. Re-Evaluation - Re-Evaluation First Eval Re-Evaluation Time: 05:15 Change: Improved Comment: I have discussed results with the patient. She states the breathing treatment helped her produce more phlegm. Discussed symptoms that warrant immediate return to ED. Disposition - Course Course Of Treatment: Patient administered Duoneb and Albuterol inhaler. - Diagnoses Provider Diagnoses: Influenza B, Bronchospasm Discharge ED - Sign-Out/Discharge Documenting (check all that apply): Patient Departure - Patient will be discharged home. - Discharge Plan Condition: Stable Disposition: HOME Patient Education Materials: Influenza (DC), Bronchospasm (ED) Referrals: Marilee Ballard [facility] [Primary Care Provider] - 3 Days Additional Instructions: Follow up with your primary care provider in 2-3 days. Return to the emergency department for any new or worsening symptoms. - Attestation Statements Document Initiated by Scribe: Yes Documenting Scribe: Cathleen Kim Provider For Whom Raghavendraibdilan is Documenting (Include Credential): Dr. Lucero Gutierrez MD Scribe Attestation: Cathleen Fam scribed for Dr. Lucero Gutierrez MD on 06/29/19 at 0542. Status of Scribe Document: Ready
[2019-06-29 04:39] LABS: ABS Basophils 0.1 10^3/ul (0-0.2); ABS Eosinophils 0.1 10^3/ul (0-0.6); ABS Lymphocytes 2.9 10^3/ul (1.0-4.8); ABS Monocytes 0.3 10^3/ul (0-0.8); ABS Neutrophils 2.6 10^3/ul (1.5-7.7); Eosinophil % 1.3 %; Hematocrit 44 % (35-47); Lymphocyte % 48.6 %; Mean Corpuscular HGB Conc 34 g/dL (31-36); Mean Corpuscular Hemoglobin 29 pg (27-31); Mean Corpuscular Volume 85 fL (80-97); Nucleated Red Blood Cells % 0.3; Platelet Count 294 10^3/uL (150-450); Red Cell Distribution Width 13 % (10-15)
[2019-06-29 04:59] LABS: ALT 11 U/L (7-52); AST 15 U/L (13-39); Albumin 4.1 g/dL (3.2-5.2); Albumin/Globulin Ratio 1.2 (1-3); Alkaline Phosphatase 85 U/L (34-104); Anion Gap 10 mmol/L (2-11); BUN/Creatinine Ratio 10.9 (8-20); Blood Urea Nitrogen 6 mg/dL (6-24); CO2 Carbon Dioxide 23 mmol/L (22-32); Chloride 99 mmol/L (101-111); EGFR African American 151.3 (>60); EGFR Non-African American 125.1 (>60); Globulin 3.5 g/dL (2-4); Glucose 271 mg/dL (70-100); Potassium 3.3 mmol/L (3.5-5.0); Sodium 132 mmol/L (135-145); Total Protein 7.6 g/dL (6.4-8.9)
[2019-06-29 05:00] LABS: INR 1.07 (0.82-1.09)
[2019-06-29 05:04] LABS: HCG Pregnancy < 0.60 mIU/mL
[2019-06-29] MEDS ORDERED: Albuterol HFA INHALER* 8 gm MDI INH ONE (05:07)
[2019-06-29 06:35] VITALS: BP 117/89
== END 2019-06-29 06:35 | disposition home or self-care (01) ==
LOC: ED 01:04
DX: J10.1 Influenza due to other identified influenza virus with other respiratory manifestations (principal); J98.01 Acute bronchospasm; R07.89 Other chest pain; E11.9 Type 2 diabetes mellitus without complications; Z79.4 Long term (current) use of insulin; I10 Essential (primary) hypertension; E78.00 Pure hypercholesterolemia, unspecified; F32.9 Major depressive disorder, single episode, unspecified
CPT/HCPCS: 36415; 71046; 80053; 83605; 83880; 84702; 85025; 85610; 99283; A9270-GY